=== PATIENT | female | born 1975 | race Hispanic/Latino ===

== ENCOUNTER 2024-02-04 06:50 | Day surgery (SDC) | payer MEDICARE ==
[2024-02-04] VITALS (10 sets, daily range): BP systolic 140–172; BP diastolic 72–91; PULSE 70–81; RESP 15–17; TEMP 97.1–97.7
[~2024-02-04] VITALS: Ht 157.5 cm; Wt 62.6 kg
[~2024-02-04 06:50] MED LIST: ATOR40TA69 PO; FLUD0.1T2 PO; INSU100V37 SQ; MIDO10TA PO; PANT40TA PO; TIRZ7.5P SQ; VITAD50000 PO
[2024-02-04] MEDS: 0.9%NACL 1000ML 1,000 ML IV ONE (07:56)
[2024-02-04] MEDS ORDERED: LIDOCAINE HCL 1% 20 ML VIAL ONE (08:30)
[2024-02-04] MEDS ORDERED: proPOFol 10 MG/ML 20ML VIAL IV ONE (08:30)
== END 2024-02-04 10:05 | disposition home or self-care (01) ==
LOC: ENDO 06:50 → DAH 06:50 → ENDO 10:05
PROVIDERS: ATTEND Internal Medicine
DX: K52.9 Noninfective gastroenteritis and colitis, unspecified (principal); D12.8 Benign neoplasm of rectum; K29.50 Unspecified chronic gastritis without bleeding; K44.9 Diaphragmatic hernia without obstruction or gangrene; K31.7 Polyp of stomach and duodenum; F41.9 Anxiety disorder, unspecified; F32.A Depression, unspecified; E78.00 Pure hypercholesterolemia, unspecified; R12 Heartburn; R11.2 Nausea with vomiting, unspecified; Z80.0 Family history of malignant neoplasm of digestive organs; I12.9 Hypertensive chronic kidney disease with stage 1 through stage 4 chronic kidney disease, or unspecified chronic kidney disease; E11.22 Type 2 diabetes mellitus with diabetic chronic kidney disease; N18.9 Chronic kidney disease, unspecified; E66.9 Obesity, unspecified; D64.9 Anemia, unspecified; Z79.899 Other long term (current) drug therapy
CPT/HCPCS: 43251; 82948 ×2; 45380; 45385; 43239; J7030 ×2; J2704; A4620; A7002; J3490